=== PATIENT | female | born 1950 | race Caucasian/White ===

== ENCOUNTER 2022-01-27 15:02 | Outpatient (RCR) | payer MEDICARE, BC, SELFPAY | END 2022-07-26 23:59 | disposition home or self-care (01) | LOC: CCIC 15:02 | PROVIDERS: PCP Physician Assistant; Visit Provider Internal Medicine Hematology & Oncology | DX: C50.911 Malignant neoplasm of unspecified site of right female breast (principal); Z17.0 Estrogen receptor positive status [ER+]; Z79.811 Long term (current) use of aromatase inhibitors; M85.80 Other specified disorders of bone density and structure, unspecified site | CPT/HCPCS: 99212; 99213; 99214 ==

== ENCOUNTER 2022-09-17 13:15 | Outpatient (RCR) | payer MEDICARE, BC, SELFPAY | END 2023-03-16 23:59 | disposition home or self-care (01) | LOC: CCIC 13:15 | PROVIDERS: PCP Physician Assistant; Visit Provider Nurse Practitioner Family | DX: C50.911 Malignant neoplasm of unspecified site of right female breast (principal); Z17.0 Estrogen receptor positive status [ER+]; Z79.811 Long term (current) use of aromatase inhibitors; Z90.13 Acquired absence of bilateral breasts and nipples; M85.80 Other specified disorders of bone density and structure, unspecified site | CPT/HCPCS: 99212; 99214 ==

== ENCOUNTER 2022-10-19 06:05 | Outpatient (CLI) | payer MEDICARE, BC, SELFPAY ==
--- NOTE | 2022-10-19 07:29 | P.ANES_ITS ---
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
--- NOTE | 2022-10-19 07:52 | W.ANESCHARGE ---
Anesthesia Charges Start Date/Time Anesthesia Start Date: 10/19/22 Anesthesia Start Time: 07:05 Stop Date/Time Anesthesia Stop Date: 10/19/22 Anesthesia Stop Time: 07:25 Summary Extremes of Age - Over 70 or under 1: MDA
== END 2022-10-19 06:06 | disposition home or self-care (01) ==
LOC: OP CLINIC 06:08
PROVIDERS: PCP Family Medicine; Visit Provider Internal Medicine
DX: R10.13 Epigastric pain (principal); K31.7 Polyp of stomach and duodenum
CPT/HCPCS: 43239; 731; 88305; 88341; 88342; 99100; J2704

== ENCOUNTER 2022-11-25 13:41 | Outpatient (CLI) | payer MEDICARE, BC, SELFPAY ==
--- NOTE | 2022-11-25 14:00 | CRLHL7_ITS ---
For Patients: As a result of the Century Cures Act, medical imaging exams and procedure reports are released immediately into your electronic medical record. You may view this report before your referring provider. If you have questions, please contact your health care provider. DXA BONE MINERAL DENSITY STUDY Reason for exam: Long-term (current) use of aromatase inhibitors. Current height (in): 63.5. Weight (lb): 160. Menopause age: 46. Ethnicity: White. 1. Have you had a previous hip or vertebral fracture? No. 2. Have you had any fractures during your adult life which did not result from significant trauma (e.g., auto accident)? No. 3. Did either of your parents have a hip fracture? No. 4. Do you smoke? No. 5. Have you ever taken Glucocorticoids? No. 6. Do you have rheumatoid arthritis? No. 7. Do you have secondary osteoporosis? No. 8. Do you drink 3 or more alcoholic drinks per day? No. 9. Are you being treated for osteoporosis? No. 10. Have you ever taken any of the following medications: Actonel, Evista, Fosamax, Miacalcin, Reclast, Boniva, Forteo, HRT (i.e., estrogen/hormone therapy), Protelos, Prolia, Vitamin D, Calcium, other ??? please specify. ANSWER: Yes, vitamin D and calcium. 11. Do you have any of the following medical conditions: Anorexia or bulimia, asthma or emphysema, end stage renal disease, hyperparathyroidism, any seizure disorders, cancer, inflammatory bowel diseases, hysterectomy, other ??? please specify. ANSWER: Yes, cancer and hysterectomy. 12. What was your maximum height (inches)? 65. 13. Do you perform weight bearing exercise regularly? Yes. 14. Do you regularly consume dairy products? Yes. 15. Do you drink caffeinated beverages? Yes. If female: 16. At what age did your period start? 13. 17. Are you premenopausal? No. 18. How many full-term pregnancies have you had? 3. 19. Have you ever missed your period for more than 6 months in a row (not including or menopause)? No. TECHNIQUE: Bone mineral density study was performed using the [employer]. FINDINGS: The results of the study expressed as bone mineral density (BMD) are as follows: Lumbar spine L1, L2, L4: BMD: 1.275 g/cm2. T-score: 2.2. Z-score: 4.3 Neck Left: BMD: 0.784 g/cm2. T-score: -0.6. Z-score: 1.3 Right: BMD: 0.732 g/cm2. T-score: -1.1. Z-score: 0.8 Total Left: BMD: 0.939 g/cm2. T-score: 0.0. Z-score: 1.5 Right: BMD: 0.957 g/cm2. T-score: 0.1. Z-score: 1.7 IMPRESSION: Osteopenia. *Comparison exams done prior to 08/2019 were performed on different unit, [employer]. COMPARISON: Compared with scan of 10/23/2020, the bone mineral density has increased by 0.4 percent at the spine and increased by 9.7percent at the hip. Compared with scan of 10/30/2018, the bone mineral density has decreased by 3.0 percent at the spine and decreased by 2.3 percent at the hip. FRAX 10-year Fracture Risk Major Osteoporotic Fracture: 8.9% Hip Fracture: 1.0% Reported Risk Factors: [place] () Neck BMD=0.732, BMI= 27.9 Gagan Huynh M.D. Diagnostic Radiologist [email or web address] DANII/azeb bowie/Dictated by: Gagan Huynh MD @ 11/26/2022 11:26:00 AM (Electronically Signed)
== END 2022-11-25 13:42 | disposition home or self-care (01) ==
LOC: RAD 13:42
PROVIDERS: PCP Family Medicine; Visit Provider Nurse Practitioner Family
DX: M85.88 Other specified disorders of bone density and structure, other site (principal); Z79.811 Long term (current) use of aromatase inhibitors
CPT/HCPCS: 77080

== ENCOUNTER 2023-02-03 07:30 | Outpatient (CLI) | payer MEDICARE, BC, SELFPAY | END 2023-02-03 07:31 | disposition home or self-care (01) | LOC: NFLDREF 02-09 11:58 | PROVIDERS: PCP Family Medicine; Referring Provider Family Medicine; Visit Provider Family Medicine | DX: E53.8 Deficiency of other specified B group vitamins (principal); E78.5 Hyperlipidemia, unspecified; E03.9 Hypothyroidism, unspecified; R53.83 Other fatigue; E55.9 Vitamin D deficiency, unspecified; D64.9 Anemia, unspecified | CPT/HCPCS: 80053; 80061; 82306; 82607; 82728; 83540; 83550; 84443 ==

== ENCOUNTER 2023-05-06 11:51 | Outpatient (REF) | payer MEDICARE, BC, SELFPAY ==
--- OUTSIDE RECORDS SUMMARY | 2023-05-08 07:30 | XMS_ITS | Clinical Summary ---
Author Name Unknown Organization [facility] Address [place], [place] [address] Care Team Providers Care Low Voltage Electrician Name Role Phone Jesenia Souza DC Unavailable [phone] Divina Vela MD Unavailable [phone] Allergies Active Allergy Reactions Criticality Noted Date Comments Montelukast Intolerance-Can't Take Low 08/30/2007 More sinus pressure Medications Medication Sig Dispensed Refills Start Date End Date Status Cholecalciferol, Vitamin D3, (VITAMIN D-3) 2,000 unit tablet Take by mouth once daily. 0 12/11/2010 Active calcium combo no.2-vit. D3 (CITRACAL + D SLOW REL.) 600 mg calcium- 500 unit Extended-Release tablet Take 2 tablets by mouth once daily. 0 12/21/2016 Active CPAPIndications:Obst ructive sleep apnea NEW replacement CPAP machine for home use at pressure: 5-16 cm/H2O , Heated humidifier x 1 q 5 yr, Water chamber x 1 q 6 mo, chin strap x 1 q 6 mo, full face mask x 1 q 3 mo, full face cushion x 1 q mo, heated pap tubing x 1 q 3 mo, headgear x 1 q 6 mo, non disposable filter 1 q 6 mo, disposable filter x 2 q mo Length of Need: 99 months, Frequency of use: Daily 1 Device 11 02/12/2019 Active magnesium 250 mg tab Take 1 tablet by mouth once daily. 0 01/09/2020 Active anastrozole (ARIMIDEX) 1 mg tabletIndications:Ma lignant neoplasm of cervix, unspecified site (HC) TAKE 1 TABLET EVERY DAY 90 Tablet 0 09/29/2020 Active sertraline (ZOLOFT) 100 mg tabletIndications:Ad justment disorder with mixed anxiety and depressed mood Take 1 Tablet (100 mg) by mouth two times daily. 180 Tablet 3 01/26/2022 Active levothyroxine (SYNTHROID) 100 mcg tabletIndications:Hy pothyroidism, acquired Take 1 Tablet (100 mcg) by mouth once daily. 90 Tablet 3 01/26/2022 Active atorvastatin (LIPITOR) 40 mg tabletIndications:Mi xed hyperlipidemia Take 1 Tablet (40 mg) by mouth at bedtime. 90 Tablet 3 01/26/2022 Active cyanocobalamin (VITAMIN B12) 1,000 mcg tabletIndications:Vi tamin B12 deficiency Take one tab by mouth five days per week. 70 Tablet 3 01/26/2022 Active traZODone (DESYREL) 50 mg tabletIndications:In somnia, idiopathic Take 1-2 Tablets (50-100 mg) by mouth at bedtime. 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 Adjustment disorder with mixed anxiety and depre ssed mood 12/22/2006 Other specified forms of hearing loss 11/08/2006 Overview: secondary to abx as a child Malignant neoplasm of cervix uteri, unspecified site 11/08/2006 Overview: hysterectomy Dysthymic disorder 11/03/2006 Unspecified hypothyroidism Resolved Problems Problem Noted Date Diagnosed Date Resolved Date Routine adult health maintenance 02/17/2018 01/05/2019 Overview: Colonoscopy 01/2018 diverticulosis, repeat in 10 years Dysthymic disorder 11/03/2006 7 Immunizations Name Administration Dates Next Due COVID-19 vaccine (Moderna 50mcg/0.5mL) 12YO+ BIVALENT PF, MDV 12/05/2021 Influenza A (H1N1), Inactiva juan alberto (Age >=3 Years) 03/27/2009 Influenza, IIV3 (Age >=3 years) 12/23/19 13,12/10/2011,12/11/2010,2009,11/20/2008,01/24/2008,01/02/2007,1 Influenza, IIV4 12/19/2015,12/27/2014,11/30/2013 Influenza, Inactivated AIIV4 (Age 65+ Years) Preserv Free 12/05/2021,01/22/2021,01/09/2020 Influenza, Inactivated IIV3 (Age 65+ Years) Preserv Free 01/05/2019,12/22/2017,12/21/2016 Pneumococcal Poly,23-Valent (Pneumovax) 12/22/2017 Pneumococcal conj 13-Valent (Prevnar 13) 12/21/2016 Td (Age >=7 Years) 11/02/2001,07/12/1987 Tdap 01/29/2021,12/11/2010 Zoster (Shingrix-RZV, recombinant) 07/04/2018, Zoster (Zostavax-ZVL, live) 02/26/2011 Family History Medical History Relation Name Comments Allergies Daughter Cancer Father [employer] [place], former smoker Alzheimer's disease Mother Hyperlipidemia Mother high choleste rol Other Mother Cancer Other nephew - brain and spinal Hyperlipidemia Sister high choleste rol Anesthesia Malignant Hyperthermia No Family History Blood Disease No Family History Cancer-breast No Family History Cancer-colon No Family History Relation Name Status Comments Daughter Father Mother Other Sister Social History Tobacco Use Types Packs/Day Years Used Date Smoking Tobacco: Never Smokeless Tobacco: Never Tobacco Cessation:Counseling Given: Yes Alcohol Use Standard Drinks/Week Comments Yes 0 (1 standard drink = 0.6 oz pur e alcohol) wine in the evening PHQ-2 Answer Date Recorded PHQ-2 TOTAL SCORE 2 01/26/2022 Social Connections Answer Date Recorded Frequency of Communication with Friends and Fami ly Not on file 02/01/2023 Financial Resource Strain Answer Date R ecorded Difficulty of Paying Living Expenses 3 01/26/2022 Difficulty of Paying Living Expenses Not on file 01/26/2022 Food Insecurity Answer Date Recorded Worried About Running Out of Food in the Last Ye ar 1 01/26/2022 Transportation Needs Answer Date Record ed Lack of Transportation (Medical) 1 01/26/2022 Housing Stability Answer Date Recorded Unable to Pay for Housing in the Last Year 1 01/26/2022 Sex and Gender Information Value Date Recorded Sex Assigned at Not on file Gender Identity Not on file Sexual Orientation Not on file Obstetrics History Para Term AB IAB SAB Ectopic Multiple Livin g Live Births 3 3 3 Date Outcome GA Total Labor Labor/2nd/3rd Weight Sex Delivery Anes PTL Leidy A1 A5 Name Cl in Para Para Para Last Filed Vital Signs Vital Sign Reading Time Taken Comments Blood Pressure 132/80 01/26/2022 8:06 AM RESEARCH PROJECT COORDINATOR Pulse 68 01/26/2022 7:38 AM RESEARCH PROJECT COORDINATOR Temperature 36.6 ??C (97.8 ??F) 02/12/2019 12:[address] Respiratory Rate 12 06/13/2018 9:53 AM CDT Oxygen Saturation 97% 01/26/2022 7:38 AM RESEARCH PROJECT COORDINATOR Inhaled Oxygen Concentration - - Weight 73.9 kg (163 lb) 01/26/2022 7:38 AM RESEARCH PROJECT COORDINATOR Height 162 cm (5' 3.78) 01/26/2022 7:38 AM RESEARCH PROJECT COORDINATOR Body Mass Index 28.17 01/26/2022 7:38 AM RESEARCH PROJECT COORDINATOR Plan of Treatment Health Maintenance Due Date Last Done Comments COVID-19 vaccine series ( season) 2022 12/23/2021, 12/05/2021, 06/29/2021, Additional history exists Influenza for age 65+ 11/19/2022 12/05/2021 , 01/22/2021, 01/09/2020, Additional history exists BMI (ht and wt on same day) for age 18+ 01/26/2023 01/26/2022, 02/25/2021, 01/22/2021, Additional history exists Depression screening for age 12+ 01/26/2023 01/26/2022, 01/22/2021, 01/09/2020, Additional history exists Medicare Wellness for age 65+ 01/27/2023, 01/22/2021, 01/09/2020, Additional history exists Lipids for age 45-75 01/26/2027 01/26/2022, 01/22/2021, 01/09/2020, Additional history exists Colonoscopy through age 75 02/18/202802/17, 02/17/2018, 02/17/2018, Additional history exists Tetanus booster 01/29/2031 01/29/2021, 11/20, 11/02/2001, Additional history exists Hepatitis C screening for ag e 18-79 Completed 12/28/2013 Pneumococcal series for age 65+ Completed 8, 12/21/2016 Zoster (shingles) series for age 50+ Completed 07/04/2018, 05/04/2018, 02/26/2011 DEXA/DXA scan for age 65+ Completed 2020, 10/30/2018, 12/27/2016, Additional history exists Tdap Completed 01/29/2021, 12/11/2010 Medical Devices Implanted Type Area Internist Device Identifier Shelf Expiration Date Model / Serial / Lot [id number] 1breast 300cc Memorygel Rnd High Smooth Silcn Implanted:Qty: 1 on 08/31/2017 by John Ahumada MD at [facility] Explanted:at [facility] (Quantity not on file) Left: Breast [employer] 12/01/2021 [id number] # / [id number] 2breast 300cc Memorygel Rnd High Smooth Silcn Implanted:Qty: 1 on 08/31/2017 by John Ahumada MD at [facility] Explanted:at [facility] (Quantity not on file) Right: Breast [employer] 04/06/2022 [id number] # / [id number] Advance Directives Documents on File Type Date Recorded Patient Dairy Inspector Expl anation Healthcare Directive 02/02/2017 3:43 PM Tomas RODRIGUEZ, 09/13/2014 Care Teams Low Voltage Electrician Relationship Specialty Start Date End Date Jesenia Souza DC [address] [place] [id number] Chiropractor 12/21/16 Divina Vela MD [address] [place] [address] Hematology - Pathology 01/09/20
== END 2023-05-06 11:52 | disposition home or self-care (01) ==
LOC: NFLDREF 11:51
PROVIDERS: PCP Family Medicine; Referring Provider Family Medicine; Visit Provider Family Medicine
DX: D50.9 Iron deficiency anemia, unspecified (principal)
CPT/HCPCS: 82728; 83540; 83550

== ENCOUNTER 2023-08-03 13:34 | Outpatient (RCR) | payer MEDICARE, BC, SELFPAY ==
--- NOTE | 2023-06-22 13:53 | ONC.NURNOTE ---
Addendum entered by Haydee Long 07/06/23 15:35: Message left for patient. Patient informed we have Breast Cancer Index results. Patient informed that we need to schedule a follow up appointment to discuss the results. Original Note: Breast Cancer Index testing request faxed to [facility], . Will schedule oncology follow up when we have results.
== END 2024-01-30 23:59 | disposition home or self-care (01) ==
LOC: CCIC 13:34
PROVIDERS: PCP Family Medicine; Visit Provider Internal Medicine Hematology & Oncology
DX: C50.911 Malignant neoplasm of unspecified site of right female breast (principal); Z17.0 Estrogen receptor positive status [ER+]; Z90.13 Acquired absence of bilateral breasts and nipples; M85.80 Other specified disorders of bone density and structure, unspecified site
CPT/HCPCS: 82728; 83540; 83550; 99213; 99214; G0463

== ENCOUNTER 2023-09-05 12:43 | Outpatient (CLI) | payer MEDICARE, BC, SELFPAY ==
--- OUTSIDE RECORDS SUMMARY | 2023-09-05 12:45 | XMS_ITS | Clinical Summary ---
Author Organization [facility] Address [place], [place] [address] Care Team Providers Care Blood Typer Name Role Phone Jesenia Souza DC Unavailable [phone] Divina Vela MD Unavailable [phone] Allergies Active Allergy Reactions Criticality Noted [...] TAKE 1 TABLET EVERY DAY 90 Tablet 09/29/2020 Active sertraline (ZOLOFT) 100 mg tabletIndications:Ad [...] Due COVID-19 vaccine (Moderna 50mcg/0.5mL) 12YO+ BIVALENT MD MATTHEWV 12/05/2021 Influenza A (H1N1), Inactiva juan alberto [...] Outcome GA Total Labor Labor/2nd/3rd Weight Sex Type Anes PTL Leidy A1 A5 Name Clin Para Para Para Last Filed Vital Signs Vital Sign Reading Time Taken Comments Blood Pressure 132/80 01/26/2022 8:06 AM RESCUE BOAT OPERATOR Pulse 68 01/26/2022 7:38 AM RESCUE BOAT OPERATOR Temperature 36.6 ??C (97.8 ??F) 02/12/2019 12:[address] Respiratory Rate 12 06/13/2018 9:53 AM CDT Oxygen Saturation 97% 01/26/2022 7:38 AM RESCUE BOAT OPERATOR Inhaled Oxygen Concentration - - Weight 73.9 kg (163 lb) 01/26/2022 7:38 AM RESCUE BOAT OPERATOR Height 162 cm (5' 3.78) 01/26/2022 7:38 AM RESCUE BOAT OPERATOR Body Mass Index 28.17 01/26/2022 7:38 AM RESCUE BOAT OPERATOR Plan of Treatment Health Maintenance Due Date Last Done Comments COVID-19 vaccine series ( season) 2022 12/23/2021, 12/05/2021, 06/29/2021, Additional history exists BMI (ht and wt on same day) for age 18+ 01/26/2023 01/26/2022, 02/25/2021, 01/22/2021, Additional history exists Depression screening for age 12+ 01/26/2023 01/26/2022, 01/22/2021, 01/09/2020, Additional history exists Medicare Wellness for age 65+ 01/27/2023, 01/22/2021, 01/09/2020, Additional history exists Influenza for age 65+ 11/20/2023 12/05/2021 , 01/22/2021, 01/09/2020, Additional history exists Lipids for [...] 01/29/2021, 12/11/2010 Medical Devices Implanted Type Area Sketch Maker Device Identifier Shelf Expiration Date Model / Serial / Lot [id number] 1breast 300cc Memorygel Rnd High Smooth Silcn Implanted:Qty: 1 on 08/31/2017 by John Ahumada MD at [facility] Explanted:at [facility] (Quantity not on file) Left: Breast [employer] 12/01/2021 [id number] # / [id number] 2breast 300cc Memorygel Rnd High Smooth Silcn Implanted:Qty: 1 on 08/31/2017 by John Ahumada MD at [facility] Explanted:at [facility] (Quantity not on file) Right: Breast [employer] 04/06/2022 [id number] # / [id number] Procedures Procedure Name Priority Date/Time Associated Diagnosis Comments LIPID PANEL W REFLEX MEASURED LDL Routine 01/26/2022 8:25 AM RESCUE BOAT OPERATOR Mixed hyperlipidemia SCAN-BONE DENSITOMETRY DEXA 10/22/2020 12:00 AM CDT COLONOSCOPY 02/17/2018 8:09 AM RESCUE BOAT OPERATOR ANTI HCV Routine 12/28/2013 9:37 AM CDT Need for hepatitis C screening test from Last 3 Months or Most Recently Relevant to Health Maintenance Results * (ABNORMAL) LIPID PANEL W REFLEX MEASURED LDL (01/26/2022 8:25 AM RESCUE BOAT OPERATOR) CHOLESTEROL,TOTAL 204(H) 100 - 199 mg/dL 01/27/2022 3:43 AM RESCUE BOAT OPERATOR [facility] TRIGLYCERIDES 128 <150 mg/dL 01/27/2022 3:43 AM RESCUE BOAT OPERATOR [facility] HDL CHOLESTEROL 54 >40 mg/dL 3:43 AM RESCUE BOAT OPERATOR [facility] NON-HDL CHOLESTEROL 150(H) <145 mg/dl 01/27/2022 3:43 AM RESCUE BOAT OPERATOR [facility] CHOL/HDL RATIO 3.78 <4.50 01/27/2022 3:43 AM RESCUE BOAT OPERATOR [facility] LDL CHOLESTEROL 124 <=130 mg/dL 01/27/2022 3:43 AM RESCUE BOAT OPERATOR [facility] VLDL CHOLESTEROL 26 <=30 mg/dL 01/27/2022 3:43 AM RESCUE BOAT OPERATOR [facility] PROVIDER ORDERED STATUS RANDOM 01/27/2022 3:43 AM RESCUE BOAT OPERATOR [facility] Blood BLOOD SPECIMEN / Unknown Venipuncture / Unknown 01/26/2022 8:25 AM RESCUE BOAT OPERATOR 01/26/2022 8:32 AM RESCUE BOAT OPERATOR Raven [facility] [address] [place] [address], * SCAN-BONE DENSITOMETRY DEXA (10/22/2020 12:00 AM CDT) Anatomical Region Laterality Modality Other Scanner OTHER * COLONOSCOPY (02/17/2018 8:09 AM RESCUE BOAT OPERATOR) 02/17/2018 8:09 AM RESCUE BOAT OPERATOR Narrative Transcriptions Dion Feliciano MD - 02/17/2018 9:14 AM CST Patient Name: Lacy Calero Procedure Date: 02/17/2018 Gender: Female Date of : 1950 Admit Type: Outpatient Procedure: Colonoscopy Proceduralist: Dion Feliciano MD , Mary Jimenez (Nurse) Referring MD: Anayeli Escobar Indications/Pre-Op Diagnosis: Screening for colorectal malignant neoplasm, Last colonoscopy: December 2007 Medications: Fentanyl 200 micrograms IV, Midazolam 4 mgIV, The level of sedation administered wasmoderate Procedure Description: The patient had risks, benefits and alternatives explained to andgave informed consent. The patient had a stable cardiopulmonary status and judged an adequate candidate for conscious sedation. The [id number] was passed through the anus and advanced tothe cecum, identified by appendiceal orifice and ileocecal valve. The colonoscopy was performed without difficulty. The patient toleratedthe procedure well. The quality of the bowel preparation was good. The ileocecal valve, appendiceal orifice, and rectum were photographed. Complications: No immediate complications. Estimated Blood Loss & Specimen: Estimated blood loss: none. Specimen collected - None Findings: The perianal and digital rectal examinations were normal. Many small-mouthed diverticula were found in the sigmoid colon and descending colon. The exam was otherwise without abnormality on direct and retroflexion views. Impressions/Post-Op Diagnosis: - Diverticulosis in the sigmoid colon and in the descending colon. - The examination was otherwise normal on direct and retroflexionviews. - No specimens collected. Recommendation: - Patient has a contact number available for emergencies. The signsand symptoms of potential delayed complications were discussed with the patient. Return to normal activities tomorrow. Written discharge instructions were provided to the patient. - Resume previous diet. - Continue present medications. - Repeat colonoscopy in 10 years for screening purposes. Moderate Sedation: Moderate (conscious) sedation was administered by the endoscopy nurse and supervised by the endoscopist. The following parameters were monitored: oxygen saturation, heart rate, respiratory rate, blood pressure, adequacy of pulmonary ventilation and reponse to care. [facility] flow[facility] and nursing notes for moderate sedation details. Total physician intraservice time was 21 minutes. Dion Feliciano MD 02/17/2018 9:14:07 AM This report has been signed electronically. Note Initiated On: 02/17/2018 8:09 AM Procedure Code(s): --- Professional --- 66034, Colonoscopy, flexible; diagnostic, including collection of specimen(s) bybrushing or washing, when performed (separateprocedure) Diagnosis Code(s): --- Professional --- Z12.11, Encounter for screening formalignant neoplasm of colon K57.30, Diverticulosis of large intestine without perforation or abscess withoutbleeding CPT copyright 2017 [employer]. All rights reserved. The codes documented in this report are preliminary and upon music professionals reviewmay be revised to meet current compliance requirements. Scope In: 8:46:06 AM Scope Withdrawal Time 0 hours 9 minutes 22 seconds Scope Out: 9:05:21 AM Dion Feliciano MD PROCEDURE ORD * ANTI HCV [08271.2] (12/28/2013 9:37 AM CDT) HEPATITIS C ANTIBODY Non-Reacti ve Non-Reacti ve 12/28/2013 4:36 PM CDT [facility] Blood specimen (specimen) BLOOD SPECIMEN / Unknown Venipuncture / Unknown 12/28/2013 9:37 AM CDT 12/28/2013 9:38 AM CDT Narrative [facility] - 12/28/2013 4:36 PM CDT Antibodies to HCV not detected; does not exclude the possibility of exposure to HCV. Bella Ivan SEND OUTS [facility] [address] [place] [address], from Last 3 Months or Most Recently Relevant to Health Maintenance Advance Directives Documents on File Type Date Recorded Patient Health Policy Nurse Expl anation Healthcare Directive 02/02/2017 3:43 PM Tomas RODRIGUEZ, 09/13/2014 Care Teams Blood Typer Relationship Specialty Start Date End Date Jesenia Souza DC [address] [place] [id number] Chiropractor 12/21/16 Divina Vela MD [address] [place] [address] Hematology - Pathology 01/09/20
--- NOTE | 2023-09-05 13:00 | CRLHL7_ITS ---
For Patients: As a result of the Century Cures Act, medical imaging exams and procedure reports are released immediately into your electronic medical record. You may view this report before your referring provider. If you have questions, please contact your health care provider. Indication: Alternating constipation and diarrhea. Bloating Technique: Abdomen 1 view. Comparison: None. Findings: Increased colonic stool burden. Calcified pelvic phleboliths. Mild degenerative changes at both hips. More prominent degenerative changes lower lumbar spine. No dilated bowel loops. The renal contours are normal. Impression: Increased colonic stool suggesting constipation. No bowel obstruction. Dictated by Gagan Huynh MD @ 09/06/2023 11:41:26 AM (Electronically Signed)
== END 2023-09-05 12:44 | disposition home or self-care (01) ==
LOC: RAD 12:44
PROVIDERS: PCP Family Medicine; Visit Provider Internal Medicine Gastroenterology
DX: R19.8 Other specified symptoms and signs involving the digestive system and abdomen (principal); K59.00 Constipation, unspecified; R19.7 Diarrhea, unspecified
CPT/HCPCS: 74018

== ENCOUNTER 2023-10-31 08:00 | Outpatient (CLI) | payer MEDICARE, BC, SELFPAY ==
--- OUTSIDE RECORDS SUMMARY | 2023-10-31 08:02 | XMS_ITS | Clinical Summary ---
Author Organization [employer] [facility] Address [place], [place] [address] Care Team Providers Care Welder Oxyhydrogen Name Role Phone Jesenia Souza DC Unavailable [phone] Divina Vela MD Unavailable [phone] Allergies Active Allergy Reactions Criticality Noted [...] Comments Blood Pressure 132/80 01/26/2022 8:06 AM LOCOMOTIVE ENGINEER Pulse 68 01/26/2022 7:38 AM LOCOMOTIVE ENGINEER Temperature 36.6 ??C (97.8 ??F) 02/12/2019 12:[address] Respiratory Rate 12 06/13/2018 9:53 AM CDT Oxygen Saturation 97% 01/26/2022 7:38 AM LOCOMOTIVE ENGINEER Inhaled Oxygen Concentration - - Weight 73.9 kg (163 lb) 01/26/2022 7:38 AM LOCOMOTIVE ENGINEER Height 162 cm (5' 3.78) 01/26/2022 7:38 AM LOCOMOTIVE ENGINEER Body Mass Index 28.17 01/26/2022 7:38 AM LOCOMOTIVE ENGINEER Plan of Treatment Health Maintenance Due Date [...] 01/29/2021, 12/11/2010 Medical Devices Implanted Type Area Electrician Crane Maintenance Device Identifier Shelf Expiration Date Model / Serial / Lot [id number] 1breast 300cc Memorygel Rnd High Smooth Silcn Implanted:Qty: 1 on 08/31/2017 by John Ahumada MD at [facility] Explanted:at [facility] (Quantity not on file) Left: Breast [employer] 12/01/2021 [id number] # / [id number] 2breast 300cc Memorygel Rnd High Smooth Silcn Implanted:Qty: 1 on 08/31/2017 by John Ahumada MD at [facility] Explanted:at [facility] (Quantity not on file) Right: Breast [employer] 04/06/2022 [id number] # / [id number] Procedures Procedure Name Priority Date/Time Associated Diagnosis Comments LIPID PANEL W REFLEX MEASURED LDL Routine 01/26/2022 8:25 AM LOCOMOTIVE ENGINEER Mixed hyperlipidemia SCAN-BONE DENSITOMETRY DEXA 10/22/2020 12:00 AM CDT COLONOSCOPY 02/17/2018 8:09 AM LOCOMOTIVE ENGINEER ANTI HCV Routine 12/28/2013 9:37 AM CDT Need for hepatitis C screening test from Last 3 Months or Most Recently Relevant to Health Maintenance Results * (ABNORMAL) LIPID PANEL W REFLEX MEASURED LDL (01/26/2022 8:25 AM LOCOMOTIVE ENGINEER) CHOLESTEROL,TOTAL 204(H) 100 - 199 mg/dL 01/27/2022 3:43 AM LOCOMOTIVE ENGINEER [facility] TRIGLYCERIDES 128 <150 mg/dL 01/27/2022 3:43 AM LOCOMOTIVE ENGINEER [facility] HDL CHOLESTEROL 54 >40 mg/dL 3:43 AM LOCOMOTIVE ENGINEER [facility] NON-HDL CHOLESTEROL 150(H) <145 mg/dl 01/27/2022 3:43 AM LOCOMOTIVE ENGINEER [facility] CHOL/HDL RATIO 3.78 <4.50 01/27/2022 3:43 AM LOCOMOTIVE ENGINEER [facility] LDL CHOLESTEROL 124 <=130 mg/dL 01/27/2022 3:43 AM LOCOMOTIVE ENGINEER [facility] VLDL CHOLESTEROL 26 <=30 mg/dL 01/27/2022 3:43 AM LOCOMOTIVE ENGINEER [facility] PROVIDER ORDERED STATUS RANDOM 01/27/2022 3:43 AM LOCOMOTIVE ENGINEER [facility] Blood BLOOD SPECIMEN / Unknown Venipuncture / Unknown 01/26/2022 8:25 AM LOCOMOTIVE ENGINEER 01/26/2022 8:32 AM LOCOMOTIVE ENGINEER Raven [facility] [address] [place] [address], * SCAN-BONE DENSITOMETRY DEXA (10/22/2020 12:00 AM CDT) Anatomical Region Laterality Modality Other Scanner OTHER * COLONOSCOPY (02/17/2018 8:09 AM LOCOMOTIVE ENGINEER) 02/17/2018 8:09 AM LOCOMOTIVE ENGINEER Narrative Transcriptions Dion Feliciano MD - 02/17/2018 [...] adequate candidate for conscious sedation. The [id number] was passed through the anus and advanced [...] reponse to care. [facility] flow[facility] and nursing notes for moderate sedation details. Total physician intraservice time was 21 minutes. Dion Feliciano MD 02/17/2018 9:14:07 AM This report has been signed electronically. Note Initiated On: 02/17/2018 8:09 AM Procedure Code(s): --- Professional --- 68713, Colonoscopy, flexible; diagnostic, including collection of specimen(s) bybrushing or washing, when performed (separateprocedure) Diagnosis Code(s): --- Professional --- Z12.11, Encounter for screening formalignant neoplasm of colon K57.30, Diverticulosis of large intestine without perforation or abscess withoutbleeding CPT copyright 2017 [employer]. All rights reserved. The codes documented in this report are preliminary and upon remote coders reviewmay be revised to meet current compliance requirements. Scope In: 8:46:06 AM Scope Withdrawal Time 0 hours 9 minutes 22 seconds Scope Out: 9:05:21 AM Dion Feliciano MD PROCEDURE ORD * ANTI HCV [87225.2] (12/28/2013 9:37 AM CDT) HEPATITIS C ANTIBODY Non-Reacti ve Non-Reacti ve 12/28/2013 4:36 PM CDT [facility] Blood specimen (specimen) BLOOD SPECIMEN / Unknown Venipuncture / Unknown 12/28/2013 9:37 AM CDT 12/28/2013 9:38 AM CDT Narrative [facility] - 12/28/2013 4:36 PM CDT Antibodies to HCV not detected; does not exclude the possibility of exposure to HCV. Bella Ivan SEND OUTS [facility] [address] [place] [address], from Last 3 Months or Most Recently Relevant to Health Maintenance Advance Directives Documents on File Type Date Recorded Patient Dermatological Surgeon Expl anation Healthcare Directive 02/02/2017 3:43 PM Tomas RODRIGUEZ, 09/13/2014 Care Teams Welder Oxyhydrogen Relationship Specialty Start Date End Date Jesenia Souza DC [address] [place] [id number] Chiropractor 12/21/16 Divina Vela MD [address] [place] [id number] Hematology - Pathology 01/09/20
--- NOTE | 2023-10-31 09:02 | P.ANES_ITS ---
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
== END 2023-10-31 08:01 | disposition home or self-care (01) ==
PROVIDERS: PCP Family Medicine; Visit Provider Internal Medicine
DX: K31.7 Polyp of stomach and duodenum (principal)
CPT/HCPCS: 00731; 43239; 88305; 88341; 88342; 99100; J2704

== ENCOUNTER 2024-02-03 07:32 | Outpatient (CLI) | payer MEDICARE, BC, SELFPAY ==
--- OUTSIDE RECORDS SUMMARY | 2024-02-07 14:22 | XMS_ITS | Clinical Summary ---
Author Organization [employer] [facility] Address [place], [place] [address] Care Team Providers Care Coordinator Of Evaluation Name Role Phone Jesenia Souza DC Unavailable [phone] Divian Vela MD Unavailable [phone] Allergies Active Allergy Reactions Criticality Noted [...] 12/10/2011 Vitamin D deficiency 02/28/2009 Arthritis 11/20/2008 Overview (11/20/2008): Osteoarthritis in fingers, neck and back. Adjustment disorder with mixed anxiety and depre ssed mood 12/22/2006 Other specified forms of hearing loss 11/08/2006 Overview (11/08/2006): secondary to abx as a child Malignant neoplasm of cervix uteri, unspecified site 11/08/2006 Overview (11/08/2006): hysterectomy Dysthymic disorder 11/03/2006 Unspecified hypothyroidism Resolved Problems Problem Noted Date Diagnosed Date Resolved Date Routine adult health maintenance 02/17/2018 01/05/2019 Overview (02/17/2018): Colonoscopy 01/2018 diverticulosis, repeat in 10 years [...] 3 3 Date Outcome GA Total Labor Labor//3rd Weight Sex Type Anes PTL Leidy A1 A5 Name Clin Para Para Para Last Filed Vital Signs Vital Sign Reading Time Taken Comments Blood Pressure 132/80 01/26/2022 8:06 AM VP MEDICAL Pulse 68 01/26/2022 7:38 AM VP MEDICAL Temperature 36.6 C (97.8 F) 02/12/2019 12:00 PM VP MEDICAL Respiratory Rate 12 06/13/2018 9:53 AM CDT Oxygen Saturation 97% 01/26/2022 7:38 AM VP MEDICAL Inhaled Oxygen Concentration - - Weight 73.9 kg (163 lb) 01/26/2022 7:38 AM VP MEDICAL Height 162 cm (5' 3.78) 01/26/2022 7:38 AM VP MEDICAL Body Mass Index 28.17 01/26/2022 7:38 AM VP MEDICAL Plan of Treatment Health Maintenance Due Date Last Done Comments BMI (ht and wt on same day) for age 18+ 01/26/2023 01/26/2022, 02/25/2021, 01/22/2021, Additional history exists Depression screening for age 12+ 01/26/2023 01/26/2022, 01/22/2021, 01/09/2020, Additional history exists Medicare Wellness for age 65+ 01/27/2023, 01/22/2021, 01/09/2020, Additional history exists COVID-19 vaccine series ( season) 2023 12/23/2021, 12/05/2021, 06/29/2021, Additional history exists Influenza [...] 01/29/2021, 12/11/2010 Medical Devices Implanted Type Area Switchboard Wire Worker Helper Device Identifier Shelf Expiration Date Model / Serial / Lot [id number] 1breast 300cc Memorygel Rnd High Smooth Silcn Implanted:Qty: 1 on 08/31/2017 by John Ahumada MD at [facility] Explanted:at [facility] (Quantity not on file) Left: Breast [email or web address] 12/01/2021 [id number] # / [id number] 2breast 300cc Memorygel Rnd High Smooth Silcn Implanted:Qty: 1 on 08/31/2017 by John Ahumada MD at [facility] Explanted:at [facility] (Quantity not on file) Right: Breast [email or web address] 04/06/2022 [id number] # / [id number] Procedures Procedure Name Priority Date/Time Associated Diagnosis Comments LIPID PANEL W REFLEX MEASURED LDL Routine 01/26/2022 8:25 AM VP MEDICAL Mixed hyperlipidemia SCAN-BONE DENSITOMETRY DEXA 10/22/2020 12:00 AM CDT COLONOSCOPY 02/17/2018 8:09 AM VP MEDICAL ANTI HCV Routine 12/28/2013 9:37 AM CDT Need for hepatitis C screening test from Last 3 Months or Most Recently Relevant to Health Maintenance Results * (ABNORMAL) LIPID PANEL W REFLEX MEASURED LDL (01/26/2022 8:25 AM VP MEDICAL) CHOLESTEROL,TOTAL 204(H) 100 - 199 mg/dL 01/27/2022 3:43 AM VP MEDICAL [facility] TRIGLYCERIDES 128 <150 mg/dL 01/27/2022 3:43 AM VP MEDICAL [facility] HDL CHOLESTEROL 54 >40 mg/dL 3:43 AM VP MEDICAL [facility] NON-HDL CHOLESTEROL 150(H) <145 mg/dl 01/27/2022 3:43 AM VP MEDICAL [facility] CHOL/HDL RATIO 3.78 <4.50 01/27/2022 3:43 AM VP MEDICAL [facility] LDL CHOLESTEROL 124 <=130 mg/dL 01/27/2022 3:43 AM VP MEDICAL [facility] VLDL CHOLESTEROL 26 <=30 mg/dL 01/27/2022 3:43 AM VP MEDICAL [facility] PROVIDER ORDERED STATUS RANDOM 01/27/2022 3:43 AM VP MEDICAL [facility] Blood BLOOD SPECIMEN / Unknown Venipuncture / Unknown 01/26/2022 8:25 AM VP MEDICAL 01/26/2022 8:32 AM VP MEDICAL Raven [facility] [address] [place] [address], * SCAN-BONE DENSITOMETRY DEXA (10/22/2020 12:00 AM CDT) Anatomical Region Laterality Modality Other Scanner OTHER * COLONOSCOPY (02/17/2018 8:09 AM VP MEDICAL) 02/17/2018 8:09 AM VP MEDICAL Narrative Transcriptions Dion Feliciano MD - 02/17/2018 9:14 AM CST Patient Name: Lacy Calero Procedure Date: 02/17/2018 Gender: Female Date of : 1950 Admit Type: Outpatient Procedure: Colonoscopy Proceduralist: Dion Felicinao MD , Mary Jimenez (Nurse) Referring MD: [...] adequate candidate for conscious sedation. The [id number]-[id number] [id number] was passed through the anus and advanced [...] reponse to care. [facility] and nursing notes for moderate sedation details. Total physician intraservice time was 21 minutes. Dion Feliciano MD 02/17/2018 9:14:07 AM This report has been signed electronically. Note Initiated On: 02/17/2018 8:09 AM Procedure Code(s): --- Professional --- 05249, Colonoscopy, flexible; diagnostic, including collection of specimen(s) bybrushing or washing, when performed (separateprocedure) Diagnosis Code(s): --- Professional --- Z12.11, Encounter for screening formalignant neoplasm of colon K57.30, Diverticulosis of large intestine without perforation or abscess withoutbleeding CPT copyright 2017 [employer]. All rights reserved. The codes documented in this report are preliminary and upon rn orthopaedics reviewmay be revised to meet current compliance requirements. Scope In: 8:46:06 AM Scope Withdrawal Time 0 hours 9 minutes 22 seconds Scope Out: 9:05:21 AM Dion Feliciano MD PROCEDURE ORD * ANTI HCV [64681.2] (12/28/2013 9:37 AM CDT) HEPATITIS C ANTIBODY Non-Reacti ve Non-Reacti ve 12/28/2013 4:36 PM CDT [facility] Blood specimen (specimen) BLOOD SPECIMEN / Unknown Venipuncture / Unknown 12/28/2013 9:37 AM CDT 12/28/2013 9:38 AM CDT Narrative [facility] - 12/28/2013 4:36 PM CDT Antibodies to HCV not detected; does not exclude the possibility of exposure to HCV. Bella Ivan SEND OUTS [facility] [address] [place] [address], from Last 3 Months or Most Recently Relevant to Health Maintenance Advance Directives Documents on File Type Date Recorded Patient Outside B2B Sales Expl anation Healthcare Directive 02/02/2017 3:43 PM Tomas RODRIGUEZ, 09/13/2014 Care Teams Coordinator Of Evaluation Relationship Specialty Start Date End Date Jesenia Souza DC [address] [place] [phone] Chiropractor 12/21/16 Divina Vela MD [address] [place] [address] Hematology - Pathology 01/09/20
== END 2024-02-03 07:33 | disposition home or self-care (01) ==
LOC: NFLDREF 02-07 14:21
PROVIDERS: PCP Family Medicine; Referring Provider Family Medicine; Visit Provider Family Medicine
DX: D50.9 Iron deficiency anemia, unspecified (principal); E53.8 Deficiency of other specified B group vitamins; E55.9 Vitamin D deficiency, unspecified; M85.80 Other specified disorders of bone density and structure, unspecified site; E78.2 Mixed hyperlipidemia; E03.9 Hypothyroidism, unspecified; M81.0 Age-related osteoporosis without current pathological fracture
CPT/HCPCS: 80053; 80061; 82306; 82607; 82728; 83540; 83550; 84443

== ENCOUNTER 2024-08-21 07:13 | Day surgery (SDC) | payer MEDICARE, BC, SELFPAY ==
[2024-08-21] VITALS (9 sets, daily range): BP systolic 122–146; BP diastolic 65–75; PULSE 65–74; RESP 16–20; TEMP 36.3–36.4; O2SAT 94–97; BMI 28.3
[2024-08-21] MEDS: LIDOCAINE 1%-EPI 1:100,000 20 ML INFILTRATI (07:35)
[2024-08-21] MEDS: BUPIVACAINE 0.5 %/EPI 1:200K INJECTION (07:35)
--- NOTE | 2024-08-21 07:35 | SUR.PREOP ---
Block in room per PA
--- NOTE | 2024-08-21 08:05 | SUR.PHASEI ---
Vital signs for surgery documented on the PACU vitals signs area.
--- NOTE | 2024-08-21 08:59 | P.ORPRC_ITS ---
Procedure Note Date of procedure: 08/21/24 Procedure: Preop diagnosis: Left thumb stenosing tenosynovitis Postop diagnosis: Left thumb stenosing tenosynovitis Procedure: Left thumb A1 johnson release Anesthesia: Local Surgeon: Michael Siegel MD care management assistant: SANDI Casanova EBL: 1 mL Complications: None Specimens: None Drains: None Preoperative antibiotics: None Indications: The patient has a history of left thumb painful catching and locking. Despite appropriate non operative management including flexor tendon sheath corticosteroid injections they continue to have symptoms. Operative intervention was recommended. The risks, benefits alternatives and expected outcomes were discussed in detail. These included but were not limited to: Infection, bleeding, injury to blood vessel or nerve, venous thromboembolism. All questions were answered to their satisfaction. The patient was placed supine on the operating room table. Local anesthesia was established with 0.5% Marcaine with epinephrine and 2% lidocaine with epinephrine. The hand was prepped and draped in usual sterile fashion. A transverse incision was made in the MP flexion crease of the thumb. Subcutaneous dissection was taken through the palmar fascia to the flexor tendons with the tenotomy scissors. The A1 johnson was released with the 15 blade and the tenotomy scissors. The edges of the A1 johnson were sharply resected. Active flexion and extension of the thumb shows no catching or locking, no bowstringing of the flexor tendons. The wound was closed with interrupted nylon sutures. A dry dressing was applied the tourniquet was released. Sponge and needle counts were correct x 2. The patient tolerated the procedure well, there were no apparent complications. They were sent to same day surgery in satisfactory condition. Plan: Use of the hand as tolerates. Discontinue the intraoperative dressing on postoperative day 3 and may get the wound wet as tolerates. Follow up in the office in 2 weeks for a wound check and suture removal.
== END 2024-08-21 09:30 | disposition home or self-care (01) ==
LOC: OR 07:15
PROVIDERS: PCP Family Medicine; Visit Provider Orthopaedic Surgery
PROC: (CPT 26055; principal; 2024-08-21 08:15)
DX: M65.312 Trigger thumb, left thumb (principal); M65.842 Other synovitis and tenosynovitis, left hand
CPT/HCPCS: 26055; J3490

== ENCOUNTER 2025-02-07 08:58 | Outpatient (CLI) | payer MEDICARE, BC, SELFPAY | END 2025-02-07 08:59 | disposition home or self-care (01) | LOC: NFLDREF 02-13 01:34 | PROVIDERS: PCP Family Medicine; Referring Provider Family Medicine; Visit Provider Family Medicine | DX: E78.2 Mixed hyperlipidemia (principal); E03.9 Hypothyroidism, unspecified; E53.8 Deficiency of other specified B group vitamins; K29.40 Chronic atrophic gastritis without bleeding; D50.9 Iron deficiency anemia, unspecified; M85.80 Other specified disorders of bone density and structure, unspecified site | CPT/HCPCS: 80053; 80061; 82306; 82607; 82728; 84443 ==

== ENCOUNTER 2025-03-12 13:00 | Outpatient (RCR) | payer MEDICARE, BC, SELFPAY ==
--- NOTE | 2025-02-20 15:54 | PT.OPEX ---
PT [place] Outpatient Eval PT [facility] Outpatient Eval Start: 02/20/25 12:57 Freq: Status: Active Protocol: Document 02/20/25 12:58 DELFIN (Rec: 02/20/25 15:54 GINNA [id number]) E-signed By Maria Elena Chu PT Physical Therapy Outpatient Evaluation Insurance Information Recert Due Date 05/17/25 Insurance Name Medicare B,Blue Cross/Blue Shield Medical Diagnosis Chronic right hip pain Treating Diagnosis Right hip pain, limited hip ROM Referring MD [place] Subjective Subjective Elizabeth reports to PT with primary complaint of chronic right hip pain however more severe last spring/summer with gardening and now housework. Aggravated by activities that require stooping, bending up and down. She notes left hip pain as well however not as severe. She had an x-ray done in January which indicated moderate to severe hip OA (R>L). She has also been referred to Ortho for opinion. Unsure at this time if she wants to pursue surgery. She is also having difficulty negotiating stairs with preference to do step to gait as well as difficulty laying on her side. She used to do yoga years ago but as of late she has been relatively inactive. PMH: breast CA, osteoporosis, arthritis Pain Comments 2-12/28 worst Date of Last 02/07/25 Physician Visit Current Work Status Retired Objective Other/Pertinent Palpation: Objective -standing iliac crest and ASIS level -supine medial malleolus on R 1/4 higher than L Hip ROM R/L: -flexion 95*/105 -ER 40/45 -IR 5/10 -Abd 35/40 Ken test: +R>L rectus femoris and slight psoas LE Strength (R/L): -Hip Abd: R: 4-/5, L: 4/5 -Hip Add: R: 4/5, L: 4/5 -Hip Ext: R: 4-/5, L: 4/5 -Hip Flx: R: 3+/5, L: 4+/5 Gait: mid foot strike B, slight reverse trendelenburg R >L Scour test: +R>L Functional Test LEFS: Performed & Score Assessment Assessment/ Patient is a 74 year old female presenting to physical Impression therapy for evaluation and treatment of chronic right hip pain. Patient presents with limited hip mobility and global hip weakness with x-rays confirming moderate to severe hip OA R>L. These impairments are limiting the patients ability to perform housework and garden, stoop/bend over, walk for extended periods, negotiate stairs reciprocally. Patient appears motivated to participate in PT and presents with good prognosis to improve mobility, strength, proprioception and return to functional activities with skilled physical therapy intervention. Plan of Care Rehabilitation Good Potential Physical Therapy In 4 visits: Goals Pt will be able to negotiate stairs reciprocally with < 2/10 pain Pt will be able to sleep without waking with hip pain including laying on her right side In 8 visits: Pt will be able to perform housework with <3/10 pain Pt will be independent with HEP and self management of symptoms Pt will exhibit 9 pt improvement in LEFS Outcome measure to demonstrate functional improvement and progress towards goals. Treatment Plan/ Dry Needling,Gait Training,Ice/Cold/Vasopneumatic,Joint Direct Interventions Mobilization,Manual Therapy,Neuromuscular Re-ed,Self- Care/Home Management,Therapeutic Activities,Therapeutic Exercises Frequency/Duration 1x/wk for 4 weeks with additional 2-4 sessions prn based on progress Patient Will Be Completion of LTG(s),Independent w/HEP,Independently Discharged From Progressing Therapy Evaluation Billing Untimed Code 20 Treatment Minutes Complexity Low Certification Information Initial 02/20/25 Certification Date Ending Certification 05/17/25 Date Provider Signature Yes Required Provider Signature POC & Medical Necessity Shows Agreement With Physician NPI Number Write NPI# Here Physician Comment/ : Change Physician Signature Please Sign/Date Here & Date Requested
== END 2025-03-12 14:04 | disposition home or self-care (01) ==
PROVIDERS: PCP Family Medicine; Visit Provider Family Medicine
DX: M25.551 Pain in right hip (principal); G89.29 Other chronic pain; Z51.89 Encounter for other specified aftercare
CPT/HCPCS: 97110; 97161